=== PATIENT | male | born 1980 | race African-American/Black ===

== ENCOUNTER 2021-04-04 20:50 | Emergency (ER) | payer SELFPAY ==
[~2021-04-04] VITALS: Ht 167.6 cm; Wt 90.6 kg
[2021-04-05 00:15] VITALS: BP 115/81
[2021-04-05] MEDS ORDERED: KETOROLAC 60MG/2ML VIAL IM ONE (00:15)
[2021-04-05] MEDS ORDERED: NAPR-681 MT (01:44)
== END 2021-04-05 02:10 | disposition home or self-care (01) ==
LOC: ER 20:50
DX: M25.561 Pain in right knee (principal); V43.52XA Car driver injured in collision with other type car in traffic accident, initial encounter; Y93.89 Activity, other specified; Y92.488 Other paved roadways as the place of occurrence of the external cause
CPT/HCPCS: 73562; 96372; 99283; J1885